=== PATIENT | male | born 1995 | race Caucasian/White ===

== ENCOUNTER 2017-09-16 11:18 | Emergency (ER) | payer OTHER ==
[2017-09-16] MEDS ORDERED: Lidocaine 1% PF 5 ML VIAL ONE (12:01)
[2017-09-16] MEDS ORDERED: Bacitracin Zinc 1 Packet ONE (12:33)
== END 2017-09-16 12:48 | disposition home or self-care (01) ==
LOC: SCSER 11:18
DX: S61.012A Laceration without foreign body of left thumb without damage to nail, initial encounter (principal); F17.220 Nicotine dependence, chewing tobacco, uncomplicated; W26.0XXA Contact with knife, initial encounter; Y99.0 Civilian activity done for income or pay
CPT/HCPCS: 12001; J2001